=== PATIENT | female | born 1945 | race Caucasian/White ===

== ENCOUNTER 2018-11-05 08:17 | Inpatient (IN) ==
--- NOTE | 2018-11-05 09:03 | Diag Imaging Result Doc PS360 ---
EXAM: XRAY PELVIS W/HIP 2-3VW RT 11/05/2018 HISTORY: FALL TECHNIQUE: AP pelvis and right hip three views COMMENT: There is a comminuted intertrochanteric fracture of the right femur. There is generalized osteopenia. IMPRESSION: Right intertrochanteric fracture. Electronically signed by Carlos Doe 11/05/2018 9:00 AM
--- NOTE | 2018-11-05 09:04 | Diag Imaging Result Doc PS360 ---
EXAM: CHEST-1 VIEW 11/05/2018 HISTORY: FALL TECHNIQUE: AP chest at 0857 COMMENT: There is a hiatal hernia. The heart size and pulmonary vascularity are within normal limits. There are no previous studies available for comparison. There is no evidence of pneumothorax or pleural fluid collection. The regional skeleton is generally osteopenic. IMPRESSION: No evidence of acute disease. Electronically signed by Carlos Doe 11/05/2018 9:02 AM
--- NOTE | 2018-11-05 09:17 | PROVIDER DOCUMENTATION ---
HPI-Musculoskeletal Pain/Inj - GENERAL Chief Complaint: Hip Injury Stated Complaint: hip pain Time Seen by Provider: 11/05/18 08:45 Source: patient - HX OF PRESENT ILLNESS-MUSKULOSKELTAL Nature of Presenting Problem: Pt states that she slipped at home on puppy pad this am injuring her rt hip. Pt denies any other injuries other than to her rt hip. Quality of Pain: reports: aching Severity in ED: mild Onset/Duration: 1-3 hours ago Timing: still present Modifying Factors: improves with: movement Any recent injury?: No Locality of Occurance: Home Similar Symptoms Previously?: No Recently seen or treated by another doctor?: No - FALL INJURY Location of Pain/Injury: reports: lower extremity (rt hip) Pain Radiation: reports: no radiation Reason for Fall: reports: slipped Symptoms prior to fall:: reports: none Loss of Consciousness: no loss of consciousness Injury Associated Symptoms: reports: joint pain (rt hip pain), unable to bear weight, trouble walking - BACK & NECK PAIN/INJURY Back/Neck Pain Radiation: reports: Upper Legs (rt hip pain) Context / Method of Injury: reports: fall Associated Symptoms: denies: lower back pain, muscle spasms, numbness in legs/feet, numbness in upper ext, sensory/motor loss, tingling in legs/feet, tingling in upper ext, weakness in legs/feet, weakness in upper ext History of Chronic Neck or Back Pain?: No - TRUNK INJURY Location of Injury(s)/Pain: reports: pelvis (rt hip) Context / Method of Injury: reports: fall Associated Symptoms: reports: denies symptoms - HIP/PELVIS PAIN/INJURY Hip Pain Location: reports: hip (R) Pain Radiation: reports: no radiation Context / Method of Injury: reports: fall Associated Symptoms: reports: denies symptoms - LOWER EXTREMITY PAIN/INJURY Lower Extremities Pain: hip: right Context / Method of Injury: reports: fell Review of Systems - Adult - REVIEW OF SYSTEMS - ADULT Constitutional: reports: no symptoms reported, see HPI Eyes: reports: no symptoms reported, see HPI Ears, Nose, Mouth & Throat: reports: no symptoms reported, see HPI Cardiovascular: reports: no symptoms reported, see HPI Respiratory: reports: no symptoms reported, see HPI Gastrointestinal: reports: no symptoms reported, see HPI Genitourinary: reports: no symptoms reported, see HPI Musculoskeletal: reports: see HPI, joint pain (rt hip pain) Integumentary: reports: no symptoms reported, see HPI Neurological: reports: no symptoms reported, see HPI Psychiatric: reports: no symptoms reported, see HPI Endocrine: reports: no symptoms reported, see HPI Hematologic/Lymphatic: reports: no symptoms reported, see HPI Allergic/Immunologic: reports: no symptoms reported All Other Systems: Reviewed and Negative Past History - Adult - PAST MEDICAL HISTORY-ADULT Review of Records: reports: Nursing Assessment Review, Medications Reviewed, Social history reviewed & non-contributory. Major Childhood Illnesses: reports: denies history Cardiovascular: reports: HTN, hyperlipidemia Neurological: reports: headaches/migraines Psychiatric: reports: depression - PRIOR SURGERIES/PROCEDURES Surgical/Procedure History: reports: hysterectomy, other (rectal abscess repair) - IMMUNIZATION STATUS Childhood Immunizations: See Nurse Assessment Flu Vaccine: See Nurse Assessment Physical Exam-Injury Related - Physical Exam-Injury Related Initial Vital Signs Reviewed: Yes General Appearance: appears well, alert, no apparent distress Eyes: PERRL/EOMI Head, Ears, Nose, Mouth & Throat: normocephalic/atraumatic, moist mucous membranes, normal ENT inspection Neck: non-tender, full range of motion, supple, normal inspection Respiratory: chest non-tender, lungs clear, normal breath sounds, no pleuratic chest pain, no respiratory distress, no accessory muscle use Cardiovascular: normal peripheral pulses, regular rate, rhythm, no edema, no gallop, no JVD, no murmur Abdominal Exam: normal bowel sounds, non tender, soft, no organomegaly, no pulsatile mass Back Exam: normal inspection, no CVA tenderness, no vertebral tenderness Extremity: no pedal edema, no calf tenderness, normal capillary refill, tenderness (pain to rt hip with palpation only.) Integumentary: normal color, warm/dry Neurologic: concrete mason II-XII nml as tested, grossly normal, no motor/sensory deficits Psych/Mental Status: normal mood/affect, normal thought content, normal thought process, oriented x 3 - Glascow Coma Score Best Eye Response ([place]): (4) open spontaneously Best Verbal Response ([place]): (5) oriented Best Motor Response ([place]): (6) obeys commands Progress - PLAN OF CARE/RESULTS Progress/Plan/Lab Results: Vital Signs - 8 hr 11/05/18 08:36 11/05/18 08:37 11/05/18 08:38 Temperature 97.8 F Pulse Rate 66 Respiratory Rate 17 Blood Pressure 179/94 179/94 O2 Sat by Pulse Oximetry 96 97 99 11/05/18 08:40 11/05/18 09:04 11/05/18 09:10 Temperature Pulse Rate Respiratory Rate Blood Pressure O2 Sat by Pulse Oximetry 98 97 96 11/05/18 09:20 11/05/18 09:30 11/05/18 09:40 Temperature Pulse Rate Respiratory Rate Blood Pressure O2 Sat by Pulse Oximetry 96 96 97 11/05/18 09:50 11/05/18 10:00 11/05/18 10:03 Temperature Pulse Rate Respiratory Rate Blood Pressure 190/180 O2 Sat by Pulse Oximetry 96 99 98 11/05/18 10:10 11/05/18 10:20 11/05/18 10:24 Temperature Pulse Rate 74 Respiratory Rate 20 Blood Pressure 137/76 O2 Sat by Pulse Oximetry 95 98 96 11/05/18 10:30 11/05/18 10:40 11/05/18 10:50 Temperature Pulse Rate 78 84 83 Respiratory Rate 14 16 31 H Blood Pressure O2 Sat by Pulse Oximetry 96 94 L 99 11/05/18 11:00 11/05/18 11:03 Temperature Pulse Rate 75 91 H Respiratory Rate 17 20 Blood Pressure 134/76 O2 Sat by Pulse Oximetry 90 L 98 Laboratory Results - last 24 hr 11/05/18 11/05/18 11/05/18 09:30 09:30 09:30 WBC 9.54 RBC 3.98 L Hgb 12.3 Hct 37.5 MCV 94.2 MCH 30.9 MCHC 32.8 L RDW Std Deviation 13.0 Plt Count 165 MPV 11.1 H Immature Gran % (Auto) 0.0 Neut % (Auto) 89.1 H Lymph % (Auto) 7.1 L [place] % (Auto) 3.2 Eos % (Auto) 0.2 Baso % (Auto) 0.4 Immature Gran # (Auto) 0.00 Neut # (Auto) 8.49 H Lymph # (Auto) 0.68 L [place] # (Auto) 0.31 Eos # (Auto) 0.02 Baso # (Auto) 0.04 PT 14.1 INR 1.01 PTT (Actin FS) 29.3 Sodium 138 Potassium 3.8 Chloride 101 Carbon Dioxide 25 Anion Gap 12 BUN 19 Creatinine 0.9 Estimated GFR/1.73 m2 > 60 BUN/Creatinine Ratio 21 Glucose 108 H Calculated Osmolality 278 Calcium 9.8 Total Bilirubin 0.32 AST 18 ALT 13 Alkaline Phosphatase 73 Total Protein 7.3 Albumin 4.5 Globulin 2.8 Albumin/Globulin Ratio 1.6 Urine Source Urine Color Urine Turbidity Urine pH Ur Specific [place] Urine Protein Ur Glucose (Stick) Ur Ketones (Stick) Urine Blood Urine Nitrite Urine Bilirubin Urobilinogen Dipstick Urine Leukocytes Urine WBC (Auto) Urine RBC (Auto) U Epithel Cells (Auto) Urine Bacteria (Auto) Blood Type Antibody Screen 11/05/18 11/05/18 09:30 10:13 WBC RBC Hgb Hct MCV MCH MCHC RDW Std Deviation Plt Count MPV Immature Gran % (Auto) Neut % (Auto) Lymph % (Auto) [place] % (Auto) Eos % (Auto) Baso % (Auto) Immature Gran # (Auto) Neut # (Auto) Lymph # (Auto) [place] # (Auto) Eos # (Auto) Baso # (Auto) PT INR PTT (Actin FS) Sodium Potassium Chloride Carbon Dioxide Anion Gap BUN Creatinine Estimated GFR/1.73 m2 BUN/Creatinine Ratio Glucose Calculated Osmolality Calcium Total Bilirubin AST ALT Alkaline Phosphatase Total Protein Albumin Globulin Albumin/Globulin Ratio Urine Source CLEAN CATCH Urine Color YELLOW Urine Turbidity CLEAR Urine pH 7.0 Ur Specific [place] 1.019 Urine Protein TRACE A Ur Glucose (Stick) NEGATIVE Ur Ketones (Stick) 40 A Urine Blood MODERATE A Urine Nitrite NEGATIVE Urine Bilirubin NEGATIVE Urobilinogen Dipstick 2 A Urine Leukocytes NEGATIVE Urine WBC (Auto) <10 Urine RBC (Auto) <10 U Epithel Cells (Auto) <10 Urine Bacteria (Auto) NEGATIVE Blood Type O POSITIVE Antibody Screen NEGATIVE Orders Category Date Time Status Don Cath Insertion ORDERED Care 11/05/18 09:41 Active NPO Diet 11/05/18 10:58 Active CHEST-1 VIEW [RAD] Stat Exams 11/05/18 08:52 Completed XRAY PELVIS W/HIP 2-3VW RT [RAD] Stat Exams 11/05/18 08:30 Completed CBC WITH ELECTRONIC DIFF [HEME] Stat Lab 11/05/18 09:30 Completed COMPREHENSIVE METABOLIC PANEL [CHEM] Stat Lab 11/05/18 09:30 Completed PT [PROTIME WITH INR] [COAG] Stat Lab 11/05/18 09:30 Completed PTT [COAG] Stat Lab 11/05/18 09:30 Completed TYPE & SCREEN [BBK] Stat Lab 11/05/18 09:30 Completed URINALYSIS [URINALYSIS] Stat Lab 11/05/18 10:13 Completed Hydromorphone [Dilaudid] Med 11/05/18 09:21 Discontinued 1 mg IV NOW ONE Ondansetron [Zofran] Med 11/05/18 09:21 Discontinued 4 mg IV NOW ONE EKG [EKG] Stat Ther 11/05/18 09:13 Ordered Transfer/Admit Order [TRANSFER] Routine Transfer 11/05/18 09:53 Ordered Calls placed to ortho and Dr Thompson for admission. 914 Dr Booker in surgery and will CB. 11:19 Dr Booker aware of pt and agrees to consult. Result Diagrams: 11/05/18 09:30 11/05/18 09:30 - CONSULTS/PCP/HOSPITALIST Notification #1 *Consult/PCP/Hospitalist*: Dr Thompson Time Discussed: 09:30 Consult Disposition: Will see in ED, Admit Departure - Departure Date of Disposition Decision: 11/05/18 Time of Disposition Decision: 10:04 DIAGNOSIS: Hip fracture Disposition: ADMITTED INPATIENT 09 Certified Medical Emergency: Emergent Condition: Fair - Critical Care Note This patient required my direct & personal management of CC.: No Attestation - Physician/ MARCIN Attestation Patient care was provided by Advanced Practice Provider:: No The physician spent face to face time with patient:: Yes Advanced Practice Provider documentation review:: Supervising physician onsite and consulted in the evaluation and care of this patient. The physician did have a face to face encounter with the patient.
[2018-11-05] MEDS ORDERED: DILAUDID IV ONE (09:21)
[2018-11-05] MEDS ORDERED: ZOFRAN IV ONE (09:21)
[2018-11-05 09:58] LABS: INR 1.01; PROTIME 14.1 Seconds (11.0-16.0)
[2018-11-05 09:59] LABS: BASO# 0.04 X1000 (0.0-0.2); BASO% 0.4 % (0.0-0.8); EOS# 0.02 X1000 (0.0-0.7); EOS% 0.2 % (0.0-10.0); HEMATOCRIT 37.5 % (37.0-47.0); HEMOGLOBIN 12.3 g/dL (12.0-16.0); LYMPH# 0.68 X1000 (1.2-3.4); LYMPH% 7.1 % (20.5-51.1); MCH 30.9 PG (27-31); MCHC 32.8 g/dL (33-37); MCV 94.2 FL (81-99); MONO# 0.31 X1000 (0.11-0.59); MONO% 3.2 % (1.7-9.3); MPV 11.1 FL (7.4-10.4); NEUT# 8.49 X1000 (1.4-6.5); NEUT% 89.1 % (42.2-75.2); PLT 165 X1000 (130-400); PTT 29.3 Seconds (22.3-41.8); RBC 3.98 XMIL (4.2-5.4); WBC 9.54 X1000 (4.8-10.8)
[2018-11-05 10:03] LABS: AGAP 12; ALB/GLOB RATIO 1.6; ALBUMIN 4.5 g/dL (3.5-5.0); ALKALINE PHOSPHATASE 73 U/L (32-104); BUN 19 mg/dL (8-22); CALCIUM 9.8 mg/dL (8.8-10.2); CHLORIDE 101 mmol/L (98-107); COSMO 278; CREATININE 0.9 mg/dL (0.5-0.9); ESTIMATED GFR > 60; GLUCOSE 108 mg/dL (70-104); GOT 18 U/L (10-30); GPT 13 U/L (10-36); POTASSIUM 3.8 mmol/L (3.5-5.1); SODIUM 138 mmol/L (136-145); TCO2 25 mmol/L (25-35); TOTAL BILIRUBIN 0.32 mg/dL (0.20-1.00); TOTAL PROTEIN 7.3 g/dL (6.3-8.3)
--- NOTE | 2018-11-05 10:18 | HISTORY AND PHYSICAL ---
HISTORY: She slipped on one of her pads. 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 She has an intertrochanteric fracture. PAST MEDICAL HISTORY: She has a limited Past Medical History. She does have a long history of anxiety and with some depression. MEDICATIONS AT HOME: She is taking BuSpar 15 mg twice a day p.r.n. Fioricet she takes for headaches. She does have headaches which seem to be more muscle contraction headaches for which she takes Fioricet as needed. She takes Cardura 8 mg a day, Lexapro 10 mg daily, [place] 10 mg q.6 hours p.r.n., Mobic 15 mg a day, and Zocor 40 mg at bedtime. ALLERGIES: No known drug allergies. FAMILY HISTORY: She reports noncontributory. No history of heart, liver or kidney problems. SOCIAL HISTORY: Negative for alcohol or tobacco. She does some cleaning and takes care of quite a few dogs at home. REVIEW OF SYSTEMS: General: No weight gain or loss. No fever or chills. HEENT: Unremarkable. Respiratory: No increased work of breathing or dyspnea. Cardiovascular: No chest pain or tachy palpitation. GI: Unremarkable. : Unremarkable. Musculoskeletal and Neurologic: No significant complaints. Endocrinologic/Hematologic: No significant history. PHYSICAL EXAMINATION: VITAL SIGNS: Temperature 97.8 degrees, pulse 66, respirations 17, blood pressure 179/94. Height is 5 feet 2 inches. 02 saturation 97% HEENT: Pupils are equal and round. LUNGS: Clear in all lung walter. CARDIOVASCULAR: Regular rhythm and rate without murmur or S3. ABDOMEN: Soft. SKIN: Warm and dry. DIAGNOSTIC: Hip and pelvic x-ray on the right shows a comminuted intertrochanteric fracture on the right femur and generalized osteopenia. Chest x-ray with no evidence of acute disease. ASSESSMENT AND PLAN: Right intertrochanteric fracture. Orthopedic will evaluate. She will need to get this repaired and then pursue rehab. I think her hemodynamics look stable and ready for surgery. We will wait on her results of all of her blood work, and we will get an EKG. Also, we will check her T4, TSH, B12, and folate. cc: Cuba Saunders MD
[2018-11-05 10:20] LABS: URINE SOURCE CLEAN CATCH
[2018-11-05 10:27] LABS: BILIRUBIN URINE NEGATIVE (NEGATIVE); BLOOD URINE MODERATE (NEGATIVE); COLOR YELLOW; GLUCOSE URINE NEGATIVE (NEGATIVE); KETONE URINE 40 mg/dL (NEGATIVE); LEUKOCYTES URINE NEGATIVE (NEGATIVE); NITRITE URINE NEGATIVE (NEGATIVE); PROTEIN URINE TRACE mg/dL (NEGATIVE); SP GRAVITY URINE 1.019; TURBIDITY URINE CLEAR (CLEAR); UR EPITHELIAL CELLS <10 /HPF (<10); URINE BACTERIA NEGATIVE /HPF; URINE RBC <10 /HPF (<10); URINE WBC <10 /HPF (<10); UROBILINOGEN URINE 2 mg/dL (NORMAL)
[2018-11-05] MEDS ORDERED: KEFZOL 1 GM/D5W 1 GM/50 ML IVPB IV ONE (11:51)
--- NOTE | 2018-11-05 12:41 | CONSULTATION ---
DATE OF CONSULTATION: 11/05/2018 CHIEF COMPLAINT: Right hip pain status post fall. HISTORY OF PRESENT ILLNESS: Ms. Lama is a 73-year-old female who is complaining of right hip pain after falling onto her hip in her home. She takes care of several dogs and slipped on one of the pads, falling onto her right hip. She denies hitting her head or any loss of consciousness. She presented to the emergency department where radiographic findings revealed a right intertrochanteric hip fracture. We were asked for further evaluation and treatment. PAST MEDICAL HISTORY: See the admission history and physical. PAST SURGICAL HISTORY: See the admission history and physical. ALLERGIES: See the admission history and physical. MEDICATIONS: See the admission history and physical. REVIEW OF SYSTEMS: Positive for right hip pain. All other is negative. PHYSICAL EXAMINATION: General: This is a well-developed, well-nourished female. She is alert, oriented, and cooperative with the examination. She is in no acute distress. Vital Signs: Stable. HEENT: Head is normocephalic, atraumatic. Neck: Supple. Respiratory: Breathing is nonlabored. Abdomen: Nondistended. Neurologic: She discerns soft touch to her right lower extremity. Gross motor function is intact. Musculoskeletal: Her right lower extremity appears to be slightly externally rotated and slightly shortened. She has difficulty with moving her right hip due to pain. ASSESSMENT: Right intertrochanteric hip fracture. PLAN: Right trochanteric fixation nail placement. Dr. Booker will proceed with a right trochanteric fixation nail placement with the patient this afternoon. Dr. Booker discussed with the patient the risks and benefits of surgery, including risks of anesthesia, , bleeding, infection, damage to tendons, nerves, ligaments, and other imponderables were discussed with the patient. The patient wishes to proceed with operative management at this time. Dictated by KORI Najera for Mendoza Booker MD cc: KORI Najera MD
--- NOTE | 2018-11-05 13:30 | EKG Report ---
Test Performed on : 11/05/2018 1:12:40 PM Test Reason : SURGERY Blood Pressure : / mmHG Vent. Rate : 089 BPM Atrial Rate : 089 BPM P-R Int : 126 ms QRS Dur : 084 ms QT Int : 372 ms P-R-T Axes : 013 025 -21 degrees QTc Int : 452 ms Sinus rhythm. with occasional premature ventricular complexes. Left ventricular hypertrophy with repolarization abnormality Abnormal ECG No previous ECGs available Unconfirmed Result
--- NOTE | 2018-11-05 13:56 | ED EKG INTERP ---
This chart was entered by Jennifer Cooney Scribe, acting as scribe for Salomón Pineda MD. EKG Interpretation - EKG Time of EKG reading by physician:: 13:12 EKG Read and Signed by:: Salomón Pineda EKG Interpretation (*Must complete 3 of following elements*): Abnormal Rate: 89 Rhythm: sinus rhythm with occ pvc Climax: normal QRS: LVH (with reploarization) MT Interval: normal ST Wave: normal Attestation - Physician/ MARCIN Attestation Patient care was provided by Advanced Practice Provider:: No The physician spent face to face time with patient:: Yes Advanced Practice Provider documentation review:: Supervising physician onsite and consulted in the evaluation and care of this patient. The physician did have a face to face encounter with the patient. This chart was documented by the indicated scribe, (Jennifer Cooney Scribe) and accurately reflects the services I performed and decisions made by me, Salomón Pineda MD, as attested by the provider's signature.
[2018-11-05] MEDS ORDERED: DIPRIVAN 1% ONE (14:32)
[2018-11-05] MEDS ORDERED: KEFZOL 1 GM/D5W 1 GM/50 ML IVPB ONE (14:54)
[2018-11-05] MEDS ORDERED: XYLOCAINE-MPF 2% ONE (16:01)
[2018-11-05] MEDS ORDERED: DECADRON ONE (16:01)
[2018-11-05] MEDS ORDERED: ZOFRAN ONE (16:01)
[2018-11-05] MEDS ORDERED: MORPHINE IV PRN ×2 (16:48→17:25)
[2018-11-05] MEDS ORDERED: MILK OF MAGNESIA PO PRN (16:48)
[2018-11-05] MEDS ORDERED: ZOFRAN IV PRN ×2 (16:48→17:25)
[2018-11-05] MEDS: MORPHINE ONE ×2 (16:56→17:04)
[2018-11-05] MEDS ORDERED: HALDOL IV PRN (17:00)
[2018-11-05] MEDS ORDERED: BUSPAR PO PRN (17:25)
[2018-11-05] MEDS ORDERED: NS 1,000 ML IV SCH (17:25)
[2018-11-05] MEDS ORDERED: PERCOCET-10 PO PRN (17:25)
[2018-11-05] MEDS ORDERED: FIORICET PO PRN (17:25)
[2018-11-05] MEDS ORDERED: TYLENOL PO PRN (17:25)
[2018-11-05] MEDS ORDERED: TYLENOL WITH CODEINE #3 PO PRN (17:25)
[2018-11-05] MEDS ORDERED: NS 1,000 ML ONE (17:41)
[2018-11-05] MEDS: NS 1,000 ML IV SCH (18:22)
--- NOTE | 2018-11-05 18:55 | OPERATIVE NOTE ---
PROCEDURE DATE: 11/05/2018 PREOPERATIVE DIAGNOSIS: Right intertrochanteric femur fracture. POSTOPERATIVE DIAGNOSIS: Right intertrochanteric femur fracture. OPERATION: Intramedullary nailing, right femur, with a Synthes TFN 11 x 360 mm nail. SURGEON: Mendoza Booker MD RADIO RIGGER: KORI Najera ANESTHESIA: General. INTRAVENOUS FLUIDS: Lactated Ringer 900 mL ESTIMATED BLOOD LOSS: 50 mL COMPLICATIONS: None. INDICATION: The patient is a pleasant 73-year-old female who is status post fall earlier today, sustaining a right intertrochanteric femur fracture. She was in the emergency room. X-rays revealed the fracture. Orthopedic consultation was requested. Risks and benefits of surgery were explained, including the risks of anesthesia, , bleeding, infection, failure to relieve pain, postoperative stiffness, nerve injury, blood clots and other imponderables. All questions were answered. The patient wished to proceed with surgery. PROCEDURE: The patient was taken to the operating room and placed supine on the operating table. Once adequate anesthesia was obtained, the reduction was then obtained, confirmed with C-arm visualization. The right lower extremity was subsequently prepped and draped in the usual sterile fashion. Approximately 3 fingerbreadths proximal to the greater trochanter, a lateral incision was made. Blunt dissection was performed through the gluteus maged to the tip of the greater trochanter. The intramedullary guide was placed along the tip of the greater trochanter into the intramedullary canal. We had good position of the pin on both AP and lateral projections. A starting hole was then reamed over the guide pin. The guide pin was then removed. A ball-tip guide pin was then placed in the intramedullary canal, across the fracture site, down the shaft of the femur. The length of the nail was determined to be 360 mm. A 12 mm reamer was then passed. An 11 x 360 mm nail was then advanced. The ball-tip guide pin was then removed. Good positioning was confirmed with C-arm visualization. Using the outrigger guide and the sleeve, a stab incision was placed along the proximal femur and the sleeve was then advanced across the lateral cortex. The guide pin was then advanced through this cannula, across the fracture site into the femoral neck and into the femoral head. We had good positioning on both AP and lateral projections. After this had been performed, the lateral cortex was reamed. An 85 mm helical blade was then advanced. It had good purchase. Good position was confirmed with C-arm visualization on both AP and lateral projections. The proximal setscrew was tightened in standard fashion. Using perfect venetie ira technique, a distal locking screw was placed through the proximal static hole through a stab incision. Final C-arm visualization revealed good alignment on both AP and lateral projections. The wounds were copiously irrigated. Number 1 Vicryl was used to repair the deep fascia in the proximal wound, followed by 2-0 Vicryl in the 2 proximal wounds and skin debbie in all the wounds. Adaptic, sterile 4 x 4's, ABD pad and tape were applied to the right lower extremity. The patient tolerated the procedure well. No complications. She was transferred to the recovery room in stable condition. cc: MD Cuba Nguyen MD
[2018-11-05] MEDS: KEFZOL 1 GM/D5W 1 GM/50 ML IVPB IV SCH (23:22)
[2018-11-05] MEDS: OXY IR PO PRN (23:23)
[2018-11-05] MEDS: TYLENOL PO SCH (23:32)
[2018-11-05] MEDS: ZOCOR PO SCH (23:32)
[2018-11-05] MEDS: COLACE PO SCH (23:32)
--- NOTE | 2018-11-06 06:13 | PROGRESS NOTE ---
DATE: 11/06/2018 SUBJECTIVE: The patient is a pleasant 73-year-old female who is 1 day status post intramedullary nailing of the right femur. She is currently resting comfortably. OBJECTIVE: The patient's right lower extremity, her dressing is intact. Calf is soft. She has active dorsiflexion and plantar flexion. She is neurovascularly distally. LABS: Her labs are pending. IMPRESSION: Postoperative day #1 status post intramedullary nailing right femur. PLAN: At this point, will begin physical therapy. Patient will be weightbearing as tolerated. I will see her back in 4 weeks. Auto Body Mechanic Apprentice for discharge planning. cc: MD Cuba Nguyen MD
[2018-11-06 06:18] LABS: ALB/GLOB RATIO 1.6; ALBUMIN 3.3 g/dL (3.5-5.0); CALCIUM 9.1 mg/dL (8.8-10.2); CREATININE 1.1 mg/dL (0.5-0.9); MAGNESIUM 1.8 mg/dL (1.5-2.7); POTASSIUM 4.3 mmol/L (3.5-5.1); TOTAL BILIRUBIN 0.37 mg/dL (0.20-1.00); TOTAL PROTEIN 5.4 g/dL (6.3-8.3)
[2018-11-06] MEDS: XARELTO PO SCH (07:06)
[2018-11-06] MEDS: OXY IR PO PRN ×2 (07:06→19:30)
[2018-11-06] MEDS: KEFZOL 1 GM/D5W 1 GM/50 ML IVPB IV SCH (07:06)
[2018-11-06] MEDS: TYLENOL PO SCH ×3 (07:06→20:39)
[2018-11-06] MEDS: NS 1,000 ML IV SCH (07:07)
[2018-11-06 08:14] LABS: BASO# 0.01 X1000 (0.0-0.2); BASO% 0.2 % (0.0-0.8); HEMATOCRIT 23.9 % (37.0-47.0); HEMOGLOBIN 7.5 g/dL (12.0-16.0); LYMPH# 0.78 X1000 (1.2-3.4); LYMPH% 13.4 % (20.5-51.1); MCH 30.4 PG (27-31); MCHC 31.4 g/dL (33-37); MCV 96.8 FL (81-99); MONO# 0.55 X1000 (0.11-0.59); MONO% 9.4 % (1.7-9.3); MPV 10.9 FL (7.4-10.4); NEUT# 4.49 X1000 (1.4-6.5); PLT 125 X1000 (130-400); RBC 2.47 XMIL (4.2-5.4); RDW 13.2 % (11.5-14.5); WBC 5.83 X1000 (4.8-10.8)
[2018-11-06] MEDS: MOBIC PO SCH (08:57)
[2018-11-06] MEDS: FERROUS SULFATE PO SCH (08:57)
[2018-11-06] MEDS: PRINIVIL PO SCH (08:57)
[2018-11-06] MEDS: PERIDEX MT SCH ×2 (08:57→20:39)
[2018-11-06] MEDS: CARDURA PO SCH (08:57)
[2018-11-06] MEDS: LEXAPRO PO SCH (08:57)
--- NOTE | 2018-11-06 10:30 | PROGRESS NOTE ---
DATE: 11/06/2018 SUBJECTIVE: Ms. Lama is awake and alert. She is asking to have her BuSpar back. No complaint of pain this morning. Breathing comfortably. PHYSICAL EXAMINATION: Vital Signs: Temperature 97.8 degrees, pulse 93, respirations 15, blood pressure 115/63. Lungs: Clear in all lung walter. Cardiovascular Examination: Regular rhythm and rate without murmur or S3. Abdomen: Soft. Skin: Warm and dry. Is and Os: Urine output is 3400 mL. ASSESSMENT AND PLAN: 1. Postoperative day 1 status post intramedullary nailing of the right femur. Begin physical therapy. I am strongly encouraging her to go to rehab. She is resistant to this at this point and wants to go home. She has multiple dogs and I think she would do better to go to a rehab facility. 2. Anxiety. She would like to have some BuSpar back. I guess we can give her back her 15 mg twice a day. 3. Pain, appears to be well controlled. 4. She has a hematocrit of 23 and hemoglobin of 7.5 with an MCV of 96. We will put her on some iron. cc: Cuba Saunders MD
[2018-11-06] MEDS: BUSPAR PO SCH (20:39)
[2018-11-06] MEDS: COLACE PO SCH (20:39)
[2018-11-06] MEDS: ZOCOR PO SCH (20:40)
[2018-11-07] MEDS: TYLENOL PO SCH ×3 (04:52→21:58)
[2018-11-07] MEDS: XARELTO PO SCH ×2 (04:52→05:25)
[2018-11-07] MEDS: NS 1,000 ML IV SCH ×3 (05:27→18:04)
[2018-11-07 08:03] LABS: HEMATOCRIT 21.3 % (37.0-47.0); HEMOGLOBIN 6.6 g/dL (12.0-16.0)
--- NOTE | 2018-11-07 09:36 | PROGRESS NOTE ---
DATE: 11/07/2018 Ms. Lama is doing better. Feeling better and she understand she needs to go to rehab. She ate almost all of her breakfast. OBJECTIVE: Vital Signs: She remains afebrile, temp 99.2 degrees, pulse 94, respirations 20, blood pressure 149/73. HEENT: Pupils are equal and round. Lungs: Are clear in all lung walter. Cardiovascular: Regular rhythm and rate without murmur or S3. Abdomen: Soft. Skin: Warm and dry. Urine output was 1700 mL. EKG from this morning, normal sinus rhythm, suggesting left ventricular hypertrophy strain pattern. ASSESSMENT AND PLAN: 1. Postoperative day 2 status post intramedullary nailing, right femur right intertrochanteric fracture. She is doing well. Has agreed to go to rehab, so hopefully Saturday or Saturday can go to rehab. Continue present physical therapy. 2. Anxiety. I put her back on her BuSpar. Seems to be doing better. 3. Pain, well controlled. 4. Acute blood loss anemia. Hematocrit 23, hemoglobin 7.5. Appears stable, although it has dropped a little more today, hematocrit 21, hemoglobin 6.6, so I will give her 1 unit of packed red blood cells. I have started her on iron and she is on her Lexapro 10 mg a day, BuSpar 15 mg twice a day, her Zocor 40 mg a day. She is on Colace 200 mg a day and we have her on Xarelto 10 mg a day. cc: Cuba Saunders MD
[2018-11-07] MEDS: MOBIC PO SCH (09:50)
[2018-11-07] MEDS: LEXAPRO PO SCH (10:00)
[2018-11-07] MEDS: CARDURA PO SCH (10:00)
[2018-11-07] MEDS: PERIDEX MT SCH ×2 (10:00→21:59)
[2018-11-07] MEDS: FERROUS SULFATE PO SCH (10:00)
[2018-11-07] MEDS: BUSPAR PO SCH ×2 (11:00→21:59)
--- NOTE | 2018-11-07 11:36 | DISCHARGE SUMMARY ---
ADMISSION DATE: 11/05/2018 DISCHARGE DATE: HOSPITAL COURSE: The patient was admitted on 11/05/2018 with right hip intertrochanteric fracture. She had slipped on a pad, taking care of her dogs and came in, admitted to the hospital on 11/05/2018. Really no other significant past medical history other than hypertension, anxiety, hypercholesterolemia. She underwent surgery on 11/05/2018 and had an inter femur [place], intramedullary nailing. She has done well postop, wants to go to rehab. I did give her 1 unit of blood for postop acute blood loss anemia and we have her on Xarelto. I did put her back on her BuSpar for her anxiety. DISCHARGE MEDICATIONS: His discharge medications will be 1. BuSpar 15 mg p.o. b.i.d. 2. Colace 200 mg at bedtime. 3. Cardura 8 mg daily. 4. Lexapro 10 mg a day. 5. Ferrous sulfate 325 mg a day. 6. I have her on Icar C, so I will just switch her to taking Icar C once a day and we will stop the ferrous sulfate. 7. Prinivil 10 mg a day. 8. Milk of magnesia as needed. 9. Mobic 15 mg a day. 10. Xarelto 10 mg a day for another 21 days. 11. She has OxyIR for pain. DISPOSITION: She is planning on going to [facility] in the morning. cc: Cuba Saunders MD
--- NOTE | 2018-11-07 11:52 | PROGRESS NOTE ---
DATE: 11/07/2018 SUBJECTIVE: Patient is a 73-year-old female who is 2 days status post intramedullary nailing of the right femur. She has no complaints this morning. OBJECTIVE: On physical exam, shows calf is soft. She has active dorsiflexion, plantar flexion. Dressing is intact. Her labs are pending. IMPRESSION: Postoperative day #2 status post intramedullary nailing of the right femur. PLAN: At this point, the patient will continue progress with physical therapy. Weight bear as tolerated right lower extremity. The plan is for inpatient rehabilitation. cc: MD Cuba Nguyen MD
[2018-11-07] MEDS: ICAR-C PO SCH (12:03)
[2018-11-07] MEDS: PRINIVIL PO SCH (12:04)
[2018-11-07] MEDS: OXY IR PO PRN (17:12)
[2018-11-07] MEDS: ZOCOR PO SCH (21:58)
[2018-11-07] MEDS: COLACE PO SCH (21:58)
[2018-11-08] MEDS: OXY IR PO PRN ×2 (05:29→10:36)
[2018-11-08] MEDS: TYLENOL PO SCH (05:30)
[2018-11-08] MEDS: XARELTO PO SCH (05:31)
[2018-11-08 07:31] LABS: HEMATOCRIT 25.1 % (37.0-47.0); HEMOGLOBIN 8.1 g/dL (12.0-16.0)
[2018-11-08 08:14] VITALS: BP 152/80
--- NOTE | 2018-11-08 08:49 | DISCHARGE SUMMARY ---
ADMISSION DATE: 11/05/2018 DISCHARGE DATE: ADDENDUM: Ms. Kayden Lama is ready go this morning to [facility] and had a good night. Her papers are ready. PHYSICAL EXAMINATION: Lungs: Are clear in all lung walter. Cardiovascular: Regular rate without murmur or S3. Abdomen: Soft. Skin: Warm and dry. Extremities: Pedal pulses 2+ and symmetrical. She had a bowel movement and blood pressures look good. Urine output good as well. So ready for discharge. cc: Cuba Saunders MD
[2018-11-08] MEDS: ICAR-C PO SCH (09:28)
[2018-11-08] MEDS: BUSPAR PO SCH (09:28)
[2018-11-08] MEDS: LEXAPRO PO SCH (09:28)
[2018-11-08] MEDS: CARDURA PO SCH (09:28)
[2018-11-08] MEDS: PRINIVIL PO SCH (09:28)
[2018-11-08] MEDS: MOBIC PO SCH (09:28)
[2018-11-08] MEDS: FERROUS SULFATE PO SCH (09:29)
[2018-11-08] MEDS: PERIDEX MT SCH (09:32)
== END 2018-11-08 11:02 | DRG 481 ==
LOC: SUPCPDRO → ED 08:17 → EDIPHOLD 11:09 → 4N 14:35
PROVIDERS: ADMIT Emergency Medicine; ATTEND Emergency Medicine
CPT/HCPCS: 36430; 51702; 71010; 71045; 73502; 76000; 80053; 81001; 83735; 84443; 85014; 85018; 85025; 85610; 85730; 86850; 86900; 86901; 86920; 93005; 94761; 94799; 96374; 96375; 97110; 97162; 97530; 99285; A9270; J0690; J1100; J1170; J2270; J2405; J7030; P9016